=== PATIENT | male | born 1990 | race Caucasian/White ===

== ENCOUNTER → 2016-10-14 | Outpatient (CLI) | payer OTHER ==
[~2016-10-14] MED LIST: GADAVIST IV PRN
--- NOTE | 2016-10-14 13:24 | DIAGNOSTIC IMAGING REPORT ---
MRI CERVICAL SPINE COMBO CLINICAL HISTORY: PARESTHESIA TECHNIQUE: Sagittal and axial T1, T2 and STIR images were obtained. Imaging was performed before and after the administration of 8.5 cc of intravenous Gadavist. COMPARISON STUDY: No previous studies for comparison. There are no suspicious areas of marrow replacement. No intrinsic cervical cord lesions are visualized. C2-3: There is no evidence of disc bulge or focal herniation. There is no spinal or foraminal stenosis. C3-4: There is no evidence of disc bulge or focal herniation. There is no spinal or foraminal stenosis. C4-5: There are no disc bulges or focal herniations. There is no spinal or foraminal stenosis. C5-6 :There is a mild circumferential disc bulge. There is mild bilateral foraminal narrowing. There is no significant spinal stenosis. C6-7: There is no evidence of disc bulge or focal herniation. There is no evidence of spinal or foraminal stenosis. C7-T1: There is no evidence of disc bulge or focal herniation. There is no evidence of spinal or foraminal stenosis. There are no pathologically enhancing lesions. IMPRESSION: 1. Mild degenerative changes the C5-6 level with a minor circumferential disc bulge and minor bilateral foraminal narrowing 2. No cord lesions identified. Electronically signed by: Zbigniew Osborn M.D. 10/14/2016 1:23 PM Dictated Date/Time: 10/14/2016 1:20 PM
--- NOTE | 2016-10-14 13:33 | DIAGNOSTIC IMAGING REPORT ---
MRI OF THE BRAIN WITHOUT AND WITH IV CONTRAST CLINICAL HISTORY: Paresthesias. COMPARISON STUDY: No previous studies for comparison. TECHNIQUE: Utilizing a 1.5 Luz Elena magnet and dedicated coil, multiplanar, multiecho imaging of the brain was performed pre and postcontrast administration. IV administration of 8.5 mL of Gadavist contrast was uneventful. Thin cut FLAIR imaging was performed. FINDINGS: There are no areas of restricted diffusion. No acute intracranial hemorrhage, midline shift or mass effect is present. Ventricular system is normal. Basilar cisterns are patent. Flow-voids for the major intracranial vessels are present. There are no intracranial masses or areas of abnormal parenchymal enhancement. There are a few punctate foci of signal abnormality within the white matter of the right temporal lobe shown best on coronal FLAIR image 15 of 27. These demonstrate minimal adjacent T2 hyperintensity and are centrally T2 and T1 hypointense. No additional abnormalities are identified on this exam. Calvarial signal is normal. There are a few left maxillary sinus mucous retention cysts. IMPRESSION: 1. No acute intracranial findings. 2. A few punctate foci of signal abnormality within the white matter of the right temporal lobe. While nonspecific, the appearance is not strongly suggestive of demyelinating disease. These suggest a remote process and are of doubtful clinical significance. 3. No intracranial mass or pathologic enhancement. Electronically signed by: Mike Bruner M.D. 10/14/2016 1:32 PM Dictated Date/Time: 10/14/2016 1:23 PM
== END | disposition home or self-care (01) ==
LOC: C.MRIBC 11:27
PROVIDERS: ATTEND Psychiatry & Neurology Neurology
DX: R20.2 Paresthesia of skin (principal)